=== PATIENT | female | born 1985 | race Asian ===

== ENCOUNTER 2019-06-20 20:48 | Emergency (ER) | payer MEDICAID ==
[~2019-06-20] VITALS: Ht 154.9 cm; Wt 52.2 kg
--- NOTE | 2019-06-20 21:09 | NUR ---
PT IS IN ROOM #5. DR CARSON EVALUATED THE PT.
[2019-06-20 21:24] LABS: *BILIRUBIN,URIN NEGATIVE (NEGATIVE); *BLOOD, URINE NEGATIVE (NEGATIVE); *CLARITY,URINE CLEAR (CLEAR); *COLOR,URINE YELLOW (YELLOW); *KETONES,URINE NEGATIVE (NEGATIVE); *UROBILINOGEN,URINE 0.2 E.U./dl (NORMAL); LEUKOCYTE ESTERASE ,URINE NEGATIVE (NEGATIVE); NITRITE, URINE NEGATIVE (NEGATIVE); UGLUCOSE NEGATIVE (NEGATIVE)
[2019-06-20 21:25] LABS: *URINE HCG, QUAL NEGATIVE (NEGATIVE)
[2019-06-20 21:28] LABS: BASOPHILS % (AUTO) 0.3 % (0.0-2.0); EOSINOPHILS # (AUTO) 0.1 K/uL (0.0-0.7); EOSINOPHILS % (AUTO) 0.7 % (0.0-7.0); HEMATOCRIT 38.7 % (31.2-41.9); HEMOGLOBIN 12.8 g/dL (10.9-14.3); LYMPHOCYTES # (AUTO) 0.9 K/uL (20.0-40.0); LYMPHOCYTES % (AUTO) 7.9 % (20.5-51.5); MEAN CORPUSCULAR HEMOGLOBIN 28.8 uug (24.7-32.8); MEAN CORPUSCULAR HGB CONC 33 g/dL (32.3-35.6); MEAN CORPUSCULAR VOLUME 86.8 fL (75.5-95.3); MONOCYTES # (AUTO) 0.7 K/uL (2.0-10.0); MONOCYTES % (AUTO) 6.6 % (0.0-11.0); NEUTROPHILS # (AUTO) 9.6 K/uL (1.8-8.9); NEUTROPHILS % (AUTO) 84.5 % (38.5-71.5); PLATELET COUNT (AUTO) 319 K/uL (179-408); RED BLOOD CELL COUNT(AUTO) 4.45 MIL/uL (3.63-4.92); WHITE BLOOD COUNT (AUTO) 11.3 K/uL (3.8-11.8)
[2019-06-20 21:32] LABS: MUCUS,URINE MANY /LPF (0-FEW); RBC,URINE 0-3 /HPF (0-3); SQUAMOUS EPITHELIAL CELL,UR FEW /HPF (NONE SEEN)
[2019-06-20 21:35] LABS: CREATININE 0.8 mg/dL (0.6-1.3); POTASSIUM 3.6 mmol/L (3.5-5.1)
[2019-06-20 21:41] LABS: BILIRUBIN,DIRECT 0.1 mg/dL (0.0-0.2); BILIRUBIN,TOTAL 0.2 mg/dL (0.2-1.0); TOTAL PROTEIN, SERUM 7.5 g/dL (6.4-8.2)
--- NOTE | 2019-06-20 22:20 | NUR ---
DR CARSON MADE PATIENT AWARE OF TEST RESULTS WILL DC HOME.
--- NOTE | 2019-06-20 22:28 | NUR ---
Patient discharged to home in stable condition. Written and verbal after care instructions given. Patient verbalizes understanding of instructions.
[2019-06-20 22:29] VITALS: BP 108/69
== END 2019-06-20 22:31 | disposition home or self-care (01) ==
LOC: ER 20:52
DX: R10.11 Right upper quadrant pain (principal)
CPT/HCPCS: 36415; 83690; 84703; 85025; 87086; A4663